=== PATIENT | female | born 2000 | race African-American/Black ===

== ENCOUNTER 2022-06-08 08:47 | Emergency (ER) | payer SELFPAY ==
[2022-06-08 08:54] VITALS: BP 137/63; PULSE 85; RESP 16; TEMP 36.4; O2SAT 99
[2022-06-08 09:42] LABS: Basophils Percent Auto 0.4 % (0.2-1.2); Eosinophils Percent Auto 1.4 % (0-4.4); Hematocrit 39.2 % (37.0-47.0); Hemoglobin 11.8 g/dL (12.0-15.0); Immature Granulocyte Absolute 0.01 K/mm3 (0.00-0.031); Immature Granulocyte Percent A 0.4 % (0-0.5); Lymphocytes Absolute Auto 0.94 K/mm3 (0.9-3.2); Mean Corpuscular HGB Conc 30.1 g/dl (32-36); Mean Corpuscular Hemoglobin 25.2 pg (26-34); Mean Corpuscular Volume 83.8 fl (80-100); Mean Platelet Volume 9.7 fl (7.4-10.4); Monocytes Absolute Auto 0.2 K/mm3 (0.1-0.6); Monocytes Percent Auto 6.7 % (2.6-8.5); Neutrophils Absolute Auto 1.7 K/mm3 (1.3-6.7); Neutrophils Percent Auto 58.1 % (45.5-73.1); Platelet Count Result 406 k/mm3 (150-375); Red Blood Count 4.68 M/mm3 (4.2-5.4); Red Cell Distribution Width 17.2 % (11.5-14.5); White Blood Count 2.9 K/mm3 (4.5-10.0)
[2022-06-08 09:48] LABS: Alanine Aminotransferase 26 U/L (6-35); Albumin Level 4.8 g/dL (3.7-5.6); Alkaline Phosphatase 76 U/L (45-116); Anion Gap 9 mmol/L (8-16); Aspartate Amino Transferase 32 U/L (14-36); Bilirubin,Total 0.7 mg/dL (0.2-1.3); Blood Urea Nitrogen 14 mg/dL (8-21); Calcium 9.2 mg/dL (8.9-10.7); Carbon Dioxide 28 mmol/L (22-30); Chloride 102 mmol/L (98-107); Estimated CRCL calculation 100 ml/min; Estimated Glomerular Filt Rate > 60; Glucose 110 mg/dL (65-110); Lipase 62 U/L (23-300); Potassium 3.5 mmol/L (3.4-5.0); Sodium 139 mmol/L (134-143)
[2022-06-08 10:44] LABS: Appearance Urine Cloudy (Clear); Bacteria Urine 4+ /hpf; Bilirubin Urine Negative (Negative); Blood Urine 3+ (Negative); Color Urine Dark Yellow (Yellow); Glucose Urine UA Negative (Negative); Ketones Urine 1+ mg/dL (Negative); Leukocyte Esterase Ur Trace LEU/UL (Negative); Need Manual Microscopic Reviewed; Nitrate Urine Negative (Negative); Non Pathogenic Casts 0-2; Protein Urine 1+ mg/dL (Negative); Squamous Epithelial Cell Urine Moderate /hpf (Few); WBC Urine 21-50 /hpf
[2022-06-08 11:01] LABS: Specific Grav Ur 1.037 (1.001-1.035)
[2022-06-08 11:03] LABS: Add Urine Microscopic? YES
--- NOTE | 2022-06-08 12:11 | ED.GENADULT ---
HPI - General Adult General Chief complaint: Abdominal Pain Stated complaint: dark stools/abd pain Time Seen by Provider: 06/08/22 09:49 History of Present Illness HPI narrative: Patient is a 21-year-old female who presents to the ER with multiple issues. She has had some mild epigastric discomfort that feels like pressure over the last couple days. Associate with discolored stools. Recently started an iron supplement for anemia. She also reports 1 week of vaginal bleeding that is longer than her typical period. She is not on any blood thinners. No dizziness when going from sitting to standing. No exertional weakness. No vomiting Related Data Home Medications Medication Instructions Recorded Confirmed ferrous sulfate 325 mg (65 mg mg 06/08/22 iron) tablet multivitamin with minerals tablet PO 06/08/22 Allergies Allergy/AdvReac Type Severity Reaction Status Date / Time No Known Allergies Allergy Verified 06/08/22 10:14 Review of Systems Review of Systems: All systems reviewed & are unremarkable except as noted in HPI and below Constitutional: Constitutional: Denies chills, Denies fatigue and Denies fever(s) ENT: Denies nasal congestion and Denies sore throat Cardiovascular: Cardiovascular: Denies chest pain, Denies rapid heart rate and Denies radiating jaw, neck or arm pain Respiratory: Respiratory: Denies cough and Denies dyspnea Gastrointestinal: Gastrointestinal: Reports abdominal pain, Denies nausea and Denies vomiting Comments: Dark stools Genitourinary: Genitourinary: Reports abnormal vaginal bleeding, Denies nocturia, Denies pelvic pain and Denies vaginal discharge PMFSH Past Medical History Medical History (Updated 06/08/22 @ 12:18 by Stef Velarde MD) Healthy female adult Surgical History Surgical History (Updated 06/08/22 @ 12:18 by Stef Velarde MD) No history of previous surgery Exam Narrative: GENERAL: Well-appearing, well-nourished, and in no acute distress. HEAD: Normocephalic, atraumatic. CHEST: Clear to auscultation. No respiratory distress. HEART: Regular rate and rhythm. Normal peripheral pulses. ABDOMEN: Soft, nontender, nondistended, multiple negative stool, firm stool in rectal vault. : Normal external genitalia. Scant old blood within the vagina. Unable to visualize cervix. No discharge. EXTREMITIES: Normal range of motion. No edema. SKIN: Warm, dry, no rash. NEURO: Alert and oriented x3. PSYCH: Normal mood and affect. Course Course Emergency Course: Discussed exam and lab findings. Patient given reassurance. Also prescribed antibiotics for UTI. Recommend follow-up with a dairy cattle farm worker for vaginal bleeding. Vital Signs Vital signs: Vital Signs Temperature 97.5 F L 06/08/22 08:54 Pulse Rate 85 06/08/22 08:54 Respiratory Rate 16 06/08/22 08:54 Blood Pressure 137/63 06/08/22 08:54 Pulse Oximetry 99 06/08/22 08:54 Oxygen Delivery Room Air 06/08/22 08:54 Temperature 97.5 F L 06/08/22 08:54 Pulse Rate 85 06/08/22 08:54 Respiratory Rate 16 06/08/22 08:54 Blood Pressure 137/63 06/08/22 08:54 Pulse Oximetry 99 06/08/22 08:54 Oxygen Delivery Room Air 06/08/22 08:54 Medical Decision Making Vital Signs Vital Signs: Vital Signs Temperature 97.5 F L 06/08/22 08:54 Pulse Rate 85 06/08/22 08:54 Respiratory Rate 16 06/08/22 08:54 Blood Pressure 137/63 06/08/22 08:54 Pulse Oximetry 99 06/08/22 08:54 Oxygen Delivery Room Air 06/08/22 08:54 Temperature 97.5 F L 06/08/22 08:54 Pulse Rate 85 06/08/22 08:54 Respiratory Rate 16 06/08/22 08:54 Blood Pressure 137/63 06/08/22 08:54 Pulse Oximetry 99 06/08/22 08:54 Oxygen Delivery Room Air 06/08/22 08:54 Lab Data 06/08/22 09:27 06/08/22 09:27 Labs: Lab Results 06/08/22 06/08/22 06/08/22 Range/Units 09:27 09:27 09:53 WBC 2.9 L (4.5-10.0) K/mm3 RBC 4.68 (4.2-5.4) M
[2022-06-08 12:23] VITALS: BP 122/77; PULSE 88; RESP 16; O2SAT 100
== END 2022-06-08 12:26 | disposition home or self-care (01) ==
PROVIDERS: Emergency Provider Emergency Medicine
DX: N39.0 Urinary tract infection, site not specified (principal); N93.9 Abnormal uterine and vaginal bleeding, unspecified; R19.5 Other fecal abnormalities
CPT/HCPCS: 36415; 80053; 81001; 81025; 83690; 85025; 87086; 99283